=== PATIENT | male | born 1950 | race Two or more races ===

== ENCOUNTER 2022-04-26 06:42 | Day surgery (SDC) | payer OTHER, MEDICAID ==
[2022-04-26] VITALS (7 sets, daily range): BP systolic 97–112; BP diastolic 43–60
[~2022-04-26] VITALS: Ht 162.6 cm; Wt 58.5 kg
[~2022-04-26 06:42] MED LIST: APIX2.5T PO; ASPI-543 PO; ATOR10TA52 PO; CHOL20007 PO; FURO1TAB31 PO; MAGN400T40 PO; METF-929 PO; METO25TA93 PO; OMEP20TA PO; SACU1TAB PO
[2022-04-26] MEDS ORDERED: LIDOCAINE 2%HCL (LOCAL ANESTH.) INJ 10ml MDV ONE (07:38)
[2022-04-26] MEDS ORDERED: IODIXANOL 320MG/ML 100ML BTL IV ONE ×2 (07:38→08:17)
[2022-04-26] MEDS ORDERED: fentaNYL CITRATE 100 MCG/2 ML VL ONE (07:41)
[2022-04-26] MEDS ORDERED: ANGIOMAX 250 MG VIAL IV ONE (07:41)
[2022-04-26] MEDS ORDERED: MIDAZOLAM HCL 2MG/2ML 2ml VIAL (1mg/ml) ONE (07:42)
[2022-04-26] MEDS ORDERED: SODIUM CHL 0.9% 0 ML ONE (07:42)
== END 2022-04-26 10:44 | disposition home or self-care (01) ==
LOC: CATH 06:42
PROVIDERS: ATTEND Internal Medicine Cardiovascular Disease
DX: I25.10 Atherosclerotic heart disease of native coronary artery without angina pectoris (principal); I25.82 Chronic total occlusion of coronary artery; R94.39 Abnormal result of other cardiovascular function study; I25.5 Ischemic cardiomyopathy; I48.91 Unspecified atrial fibrillation; I11.0 Hypertensive heart disease with heart failure; I50.20 Unspecified systolic (congestive) heart failure; Z95.1 Presence of aortocoronary bypass graft; Z95.810 Presence of automatic (implantable) cardiac defibrillator; E11.9 Type 2 diabetes mellitus without complications; E78.5 Hyperlipidemia, unspecified; K21.9 Gastro-esophageal reflux disease without esophagitis; Z79.84 Long term (current) use of oral hypoglycemic drugs; Z20.822 Contact with and (suspected) exposure to COVID-19
CPT/HCPCS: 36415; 93459; C1760; C1894; J1644; J2001; J2250; J3010; Q9967; U0003; 99152; 99153